=== PATIENT | male | born 1990 | race Caucasian/White ===

== ENCOUNTER 2017-11-04 10:46 | Outpatient (CLI) | END 2017-11-04 10:47 | disposition home or self-care (01) | LOC: FCC-LAB 10:46 | PROVIDERS: ATTEND Family Medicine | DX: F90.0 Attention-deficit hyperactivity disorder, predominantly inattentive type (principal); R74.0 Nonspecific elevation of levels of transaminase and lactic acid dehydrogenase [LDH] | CPT/HCPCS: 80306 ==